=== PATIENT | male | born 1980 | race Hispanic/Latino ===

== ENCOUNTER 2017-06-10 18:43 | Emergency (ER) | payer SELFPAY ==
[2017-06-10] MEDS ORDERED: Ketorolac Tromethamine 30 MG/ML VIAL ONE (19:36)
--- NOTE | 2017-06-10 20:12 | RAD ---
PORTABLE AP CHEST X-RAY 06/10/17 HISTORY: Cough, bodyaches and fever. Headache. COMPARISON: None available. FINDINGS: The cardiac silhouette is magnified by projection. Pulmonary vasculature is within normal limits. Th e lungs are clear. Osseous structures are intact. IMPRESSION: No acute cardiopulmonary process. POS: [facility]
== END 2017-06-10 20:24 | disposition home or self-care (01) ==
LOC: ERS 18:43
DX: J11.1 Influenza due to unidentified influenza virus with other respiratory manifestations (principal); I10 Essential (primary) hypertension; F17.210 Nicotine dependence, cigarettes, uncomplicated
CPT/HCPCS: 71010; 96372; J1885

== ENCOUNTER 2017-10-23 12:09 | Emergency (ER) | payer SELFPAY ==
--- NOTE | 2017-10-23 12:37 | RAD ---
PORTABLE CHEST: History: Chest pain. FINDINGS: Heart size is within normal limits for portable technique. Mediastinal structures appear unremarkable . The lungs are clear of any infiltrative process. IMPRESSION: No active intrathoracic disease. POS: [facility]
[2017-10-23 12:42] LABS: #Basophils 0.1 thou/uL (0.0-0.2); #Eosinphils 0.2 thou/uL (0.0-0.7); #Monocytes 0.5 thou/uL (0.11-0.59); #Neutrophils 3.8 thou/uL (1.40-6.50); %Basophils 1.3 % (0.0-1.0); %Eosinophils 2.7 % (0.0-10.0); %Lymphocytes 30.5 % (21.0-51.0); %Monocytes 7.5 % (0.0-10.0); Hemoglobin 15.5 g/dL (14.0-18.0); Mean Corpuscular HGB CONC 34.8 g/dL (32.0-36.0); Mean Corpuscular Hemoglobin 31.2 pg (27.0-31.0); Mean Corpuscular Volume 89.7 fl (80.0-94.0); Platelet Count 223 thou/uL (130-400); RBC Distribution Width 11.5 % (11.5-14.5); Red Blood Cell (RBC) Count 4.97 mill/uL (4.70-6.10); White Blood Cell (WBC) Count 6.5 thou/uL (4.8-10.8)
[2017-10-23 13:09] LABS: ALT (SGPT) 37 U/L (8-55); AST (SGOT) 30 U/L (5-34); Albumin 4.2 g/dL (3.5-5.0); Alkaline Phosphatase 61 U/L (40-150); Anion Gap 14 mmol/L (10-20); BUN (Urea Nitrogen) 15 mg/dL (8.9-20.6); Bilirubin, Total 1.1 mg/dL (0.2-1.2); CK (CPK) 522 U/L (30-200); Calc. Creatinine Clearance 0 mL/min (70-130); Calcium 9.2 mg/dL (7.8-10.44); Carbon Dioxide 25 mmol/L (22-29); Chloride 106 mmol/L (98-107); Estimated GFR-MDRD Greater than 90; Globulin 2.8 g/dL (2.4-3.5); Glucose 120 mg/dL (70-105); Lipase 29 U/L (8-78); Potassium 4.1 mmol/L (3.5-5.1); Sodium 141 mmol/L (136-145)
[2017-10-23] MEDS ORDERED: Aspirin 325 MG TAB ONE (13:09)
[2017-10-23 13:13] LABS: CKMB 6.3 ng/mL (0-6.6); Troponin I Less than 0.010 ng/mL (< 0.028)
== END 2017-10-23 13:41 | disposition home or self-care (01) ==
LOC: ERS 12:09
DX: R07.9 Chest pain, unspecified (principal); M79.601 Pain in right arm; I10 Essential (primary) hypertension; F17.210 Nicotine dependence, cigarettes, uncomplicated; Z71.6 Tobacco abuse counseling
CPT/HCPCS: 71045; 80053; 82553; 83690; 84484; 85025; 93005; 94760; 99406

== ENCOUNTER 2017-10-31 21:44 | Emergency (ER) | payer SELFPAY ==
[2017-10-31 22:27] LABS: #Basophils 0.1 thou/uL (0.0-0.2); #Eosinphils 0.1 thou/uL (0.0-0.7); #Lymphocytes 2.4 thou/uL (1.20-3.40); #Monocytes 0.7 thou/uL (0.11-0.59); #Neutrophils 5.1 thou/uL (1.40-6.50); %Basophils 0.9 % (0.0-1.0); %Eosinophils 1.7 % (0.0-10.0); %Lymphocytes 28.4 % (21.0-51.0); %Monocytes 8.2 % (0.0-10.0); %Neutrophils 60.9 % (42.0-75.0); Hemoglobin 14.8 g/dL (14.0-18.0); Mean Corpuscular HGB CONC 34.9 g/dL (32.0-36.0); Mean Corpuscular Hemoglobin 31.7 pg (27.0-31.0); Mean Corpuscular Volume 90.7 fl (80.0-94.0); Platelet Count 206 thou/uL (130-400); RBC Distribution Width 11.6 % (11.5-14.5); Red Blood Cell (RBC) Count 4.69 mill/uL (4.70-6.10); White Blood Cell (WBC) Count 8.4 thou/uL (4.8-10.8)
[2017-10-31 22:45] LABS: ALT (SGPT) 35 U/L (8-55); AST (SGOT) 23 U/L (5-34); Albumin 4.3 g/dL (3.5-5.0); Alkaline Phosphatase 56 U/L (40-150); Anion Gap 12 mmol/L (10-20); BUN (Urea Nitrogen) 15 mg/dL (8.9-20.6); CK (CPK) 461 U/L (30-200); Calc. Creatinine Clearance 0 mL/min (70-130); Calcium 9.5 mg/dL (7.8-10.44); Carbon Dioxide 27 mmol/L (22-29); Chloride 103 mmol/L (98-107); Estimated GFR-MDRD Greater than 90; Globulin 2.7 g/dL (2.4-3.5); Glucose 99 mg/dL (70-105); Potassium 3.6 mmol/L (3.5-5.1); Sodium 138 mmol/L (136-145)
[2017-10-31 22:46] LABS: CKMB 4.1 ng/mL (0-6.6); Troponin I Less than 0.010 ng/mL (< 0.028)
--- NOTE | 2017-10-31 22:47 | RAD ---
TWO VIEW CHEST 10/31/17 COMPARISON: 10/23/17 INDICATION: Chest pain, right sided weakness, light headedness. FINDINGS: There is no consolidation, effusion or pneumothorax. The cardiac silhouette is stable. IMPRESSION: No significant interval change. POS: [facility]
[2017-10-31] MEDS ORDERED: Metoclopramide HCl 10 MG/2 ML VIAL ONE (22:56)
[2017-10-31] MEDS ORDERED: Ketorolac Tromethamine 30 MG/ML VIAL ONE (22:56)
[2017-10-31] MEDS ORDERED: Dexamethasone 10 MG/ML VIAL ONE (22:56)
--- NOTE | 2017-10-31 23:30 | CT ---
CT OF HEAD NONCONTRAST 10/31/17 INDICATION: Headache. FINDINGS: Ventricular system is normal sized. No intracranial hemorrhage, mass effect or midline shift. There i s partial opacification of the imaged left maxillary sinus. IMPRESSION: No acute intracranial hemorrhage or mass effect, POS: [facility]
--- NOTE | 2017-11-08 17:46 | EKG ---
Test Reason : Blood Pressure : / mmHG Vent. Rate : 063 BPM Atrial Rate : 063 BPM P-R Int : 170 ms QRS Dur : 094 ms QT Int : 390 ms P-R-T Axes : 031 036 036 degrees QTc Int : 399 ms Normal sinus rhythm Normal ECG Confirmed by BLAYNE PEREIRA, GIOVANNA ([id number]), book or script editor BARB FAY ([id number]) on 11/08/2017 5:45:57 PM Referred By: Confirmed By:GIOVANNA CISNEROS MD
== END 2017-10-31 23:39 | disposition home or self-care (01) ==
LOC: ERS 21:44
DX: R07.9 Chest pain, unspecified (principal); J32.9 Chronic sinusitis, unspecified; I10 Essential (primary) hypertension; F17.210 Nicotine dependence, cigarettes, uncomplicated; Z71.6 Tobacco abuse counseling
CPT/HCPCS: 36415; 70450; 71046; 80053; 82550; 82553; 84484; 85025; 93005; 96374; 96375; 99406; J1100; J1885; J2765